=== PATIENT | male | born 1950 | race Caucasian/White ===

== ENCOUNTER → 2022-06-11 11:32 | Outpatient (BNVA) | payer MEDICARE, SELFPAY | PROVIDERS: PCP Nurse Practitioner Family; Visit Provider Nurse Practitioner Family | DX: I10 Essential (primary) hypertension (principal); Z12.5 Encounter for screening for malignant neoplasm of prostate; E55.9 Vitamin D deficiency, unspecified | CPT/HCPCS: 80053; 80061; 82306; 83735; 84443; 85025; G0103 ==

== ENCOUNTER → 2022-12-18 11:27 | Outpatient (BNVA) | payer MEDICARE, SELFPAY | PROVIDERS: PCP Nurse Practitioner Family; Visit Provider Nurse Practitioner Family | DX: I10 Essential (primary) hypertension (principal); E55.9 Vitamin D deficiency, unspecified | CPT/HCPCS: 80053; 80061; 82306; 84443; 85025 ==

== ENCOUNTER → 2023-01-28 14:07 | Outpatient (BNVA) | payer MEDICARE, SELFPAY | PROVIDERS: PCP Nurse Practitioner Family; Visit Provider Nurse Practitioner Family | DX: L82.0 Inflamed seborrheic keratosis (principal); L21.8 Other seborrheic dermatitis; L57.0 Actinic keratosis; D22.5 Melanocytic nevi of trunk; L81.4 Other melanin hyperpigmentation; L85.3 Xerosis cutis; L57.8 Other skin changes due to chronic exposure to nonionizing radiation | CPT/HCPCS: 17000; 17003; 17110; 99214 ==

== ENCOUNTER 2023-02-07 12:55 | Emergency (ER) | payer MEDICARE, SELFPAY ==
[2023-02-07 12:57] VITALS: BP 167/98; PULSE 71; TEMP 36.7; O2SAT 97; BMI 28.2
--- NOTE | 2023-02-07 13:05 | CTR_ITS ---
PROCEDURE INFORMATION: Exam: CT Head Without Contrast Exam date and time: 02/07/2023 1:13 PM Age: 72 years old Clinical indication: Dizziness; Additional info: Dizzy TECHNIQUE: Imaging protocol: Computed tomography of the head without contrast. Radiation optimization: All CT scans at this facility use at least one of these dose optimization techniques: automated exposure control; mA and/or kV adjustment per patient size (includes targeted exams where dose is matched to clinical indication); or iterative reconstruction. REPORTING DATA: Count of CT and Cardiac NM exams in prior 12 months: This patient has received 0 known CTs and 0 known cardiac nuclear medicine studies in the 12 months prior to the current study. COMPARISON: No relevant prior studies available. RADIATION DOSE METRICS: Total DLP (mGy-cm): 1049.49 FINDINGS: Brain: There is no acute intracranial hemorrhage. There is mild lucency in the cerebral white matter, likely microvascular disease although non-specific. No evidence of mass. There is no mass effect or midline shift. Padilla white differentiation is intact. There are no extra-axial fluid collections. Cerebral ventricles: The ventricles and sulci are enlarged, consistent with age-related volume loss / atrophy. No hydrocephalus. Paranasal sinuses: Visualized sinuses are unremarkable. No fluid levels. Mastoid air cells: No significant mastoid effusion. Bones/joints: No acute fracture. Soft tissues: Unremarkable as visualized. Vasculature: There is vascular calcification. CT/CT head wo con* [id number] IMPRESSION: 1. No evidence of acute intracranial abnormality. No evidence of acute infarction, hemorrhage, or mass. 2. Atrophy and microvascular disease.
--- NOTE | 2023-02-07 13:06 | W.ED.NEUROSD ---
HPI - Neuro Symptoms/Deficit General: Chief Complaint: Dizziness Stated Complaint: DIZZY; HTN Time Seen by Provider: 02/07/23 12:56 Source: patient Mode of arrival: ambulatory Limitations: no limitations History of Present Illness: 72-year-old male states that his blood pressures been running high this morning states he is running in the 160s he does take losartan at home states he is feeling some dizziness he states with sudden movements he had felt like the room was spinning so he called ambulance he states those symptoms resolved he is no longer dizzy he had no weakness or slurred speech he denies any chest pain or headache. Associated symptoms: Deny chest pain, headache(s), nausea or vomiting Review of Systems Const: Denies: fever(s), chills, body aches or change in appetite Eyes: Denies: blurry vision or eye discomfort ENMT: Denies: throat pain or dental pain Card: Denies: chest pain Resp: Denies: dyspnea GI: Denies: abdominal pain, nausea, vomiting or diarrhea : Denies: dysuria Musc: Denies: neck pain or back pain Skin/Breast: Denies: rash Neuro: Reports: dizziness; Denies: headache(s), numbness in extremities or weakness in extremities PFSH ED PFSH: Medical History Anxiety CKD (chronic kidney disease) GERD (gastroesophageal reflux disease) Hyperlipidemia Hypertension Vitamin D deficiency Surgical History H/O hernia repair H/O thumb surgery History of carpal tunnel surgery of left wrist History of carpal tunnel surgery of right wrist History of total knee replacement Hx of hand surgery Family History Father Cancer THROAT,PROSTATE Mother Dementia Social History Smoking and tobacco status: former smoker Quit status (tobacco): has quit using tobacco Year quit tobacco: 30 YEARS AGO Second hand smoke exposure: No Alcohol intake: current Alcohol intake frequency: 0-2 Drinks per Day Alcohol type: wine Substance/Drug Use: never Household members: spouse Marital status: service: Yes status: Discharged branch: [employer] Current occupational status: retired Current gender identity: Male Malgorzata/Buddhism: Worship Special malgorzata needs: No NIH stroke score NIHSS: Level Of Consciousness - 1a: 0 Level Of Consciousness Questions - 1b: Both Correct Level Of Consciousness Commands - 1c: Both Correct Best Gaze - 2: Normal Visual Tran - 3: No Visual Loss Facial Palsy - 4: Normal Motor Arm Right - 5: No Drift Motor Arm Left - 5: No Drift Motor Leg Right - 6: No Drift Motor Leg Left - 6: No Drift Limb Ataxia - 7: Absent Sensory - 8: Normal Best Language - 9: No Aphasia Dysarthia - 10: Normal Extinction And Inattention - 11: 0 Score: Total Score: 0 Physical Exam Const: COMMON NORMALS: no acute distress, patient oriented x3 and healthy appearing HENMT: COMMON NORMALS: normocephalic and atraumatic HEAD & SCALP: normocephalic and atraumatic Eye: COMMON NORMALS: Equal, round and reactive pupils present and EOMs intact bilaterally PUPIL: Yes Equal, round and reactive pupils present Neck/C-Spine: COMMON NORMALS: full ROM and supple Chest: COMMONS NORMALS: normal inspection of the chest and normal palpation of entire chest wall Resp: COMMON NORMALS: normal respiratory effort, No retractions, No use of accessory muscles and clear to auscultation bilaterally AUSCULTATION: clear to auscultation bilaterally Cardio: COMMON NORMALS: regular rate, regular rhythm and No murmurs present (Cardio) RATE: regular rate RHYTHM: regular rhythm GI: COMMON NORMALS: Normal to inspection, nondistended, normoactive bowel sounds present, Soft to palpation, non-tender and no masses PALPATION: Yes Soft to palpation Extremity: COMMON NORMALS: normal to inspection and full ROM Neuro: COMMON NORMALS: patient oriented x3, moves all extremities and no focal motor deficits Psych: COMMON NORMALS: mental status grossly normal, Normal thought process present and cooperative THOUGHT PROCESS: Normal thought process present Skin: COMMON NORMALS: no rashes or lesions noted and no wounds GENERAL SKIN EXAM: no rashes or lesions noted Course Vital Signs: Vital signs: Vital Signs Temperature 98.0 F 02/07/23 12:57 Pulse Rate 64 02/07/23 13:46 Respiratory Rate 18 02/07/23 13:46 Blood Pressure 158/92 02/07/23 13:46 Pulse Oximetry 98 02/07/23 13:46 Oxygen Delivery Me thod Room Air 02/07/23 13:46 MDM - Neuro Symptoms/Deficit Medical Decision Making Patient presents here with dizziness along with hypertension blood pressure is much improved his dizziness is resolved he has no signs of stroke here he is stable for discharge she is to follow-up with PCP and return if worsening he understands agrees to plan Medical Records I reviewed the patient's medical records. Lab Data I reviewed the patient's lab results. 02/07/23 13:05 02/07/23 13:05 Laboratory Results WBC 5.77 10^3/uL (3.29-11.43) 02/07/23 13:05 RBC 4.17 10^6/uL (3.85-5.65) 02/07/23 13:05 Hgb 13.50 g/dL (11.27-16.99) 02/07/23 13:05 Hct 40.2 % (37-53) 02/07/23 13:05 MCV 96.4 fl (82-101) 02/07/23 13:05 MCH 32.4 pg (27-33) 02/07/23 13:05 MCHC 33.6 g/dL (30-55) 02/07/23 13:05 RDW 13.9 % (12.1-15.1) 02/07/23 13:05 Plt Count 162 10^3/cmm (157-399) 02/07/23 13:05 MPV 10.1 fL (7.4-10.4) 02/07/23 13:05 Neut % (Auto) 56.9 % 02/07/23 13:05 Lymph % (Auto) 28.9 % 02/07/23 13:05 [place] % (Auto) 9.2 % 02/07/23 13:05 Eos % (Auto) 3.3 % 02/07/23 13:05 Baso % (Auto) 1.4 % 02/07/23 13:05 Neut # (Auto) 3.28 10^3/uL (1.8-7.7) 02/07/23 13:05 Lymph # (Auto) 1.7 10^3/uL (0.8-4.8) 02/07/23 13:05 [place] # (Auto) 0.5 10^3/uL (0.2-0.9) 02/07/23 13:05 Eos # (Auto) 0.2 10^3/uL (0.0-0.8) 02/07/23 13:05 Baso # (Auto) 0.1 10^3/uL (0.0-0.1) 02/07/23 13:05 Nucleated RBC % (auto) 0 % 02/07/23 13:05 Nucleated RBCs # 0.0 /100WBC 02/07/23 13:05 Sodium 140 mmol/L (136-145) 02/07/23 13:05 Potassium 4.5 mmol/L (3.5-5.1) 02/07/23 13:05 Chloride 104 mmol/L (98-107) 02/07/23 13:05 Carbon Dioxide 26 mmol/L (22-29) 02/07/23 13:05 Anion Gap 14.5 (5-19) 02/07/23 13:05 BUN 29 mg/dL (8-23) H 02/07/23 13:05 Creatinine 1.6 mg/dL (0.7-1.2) H 02/07/23 13:05 GFR Calculation Not Reportable 02/07/23 13:05 Glucose 116 mg/dL (65-115) H 02/07/23 13:05 Calculated Osmolality 297 mOsm/kg (285-295) H 02/07/23 13:05 Calcium 9.6 mg/dL (8.5-10.5) 02/07/23 13:05 Total Bilirubin 0.8 mg/dL (0.15-1.2) 02/07/23 13:05 AST 22 U/L (0-40) 02/07/23 13:05 ALT 22 U/L (0-41) 02/07/23 13:05 Alkaline Phosphatase 35 U/L (40-130) L 02/07/23 13:05 Total Protein 7.3 g/dL (6.6-8.7) 02/07/23 13:05 Albumin 4.3 g/dL (3.5-5.2) 02/07/23 13:05 Globulin 3.0 g/dL (1.3-4.6) 02/07/23 13:05 All radiology interpretation(s) finalized by discharge EKG Data EKG 1: I personally reviewed and interpreted this EKG as follows: EKG interpretation date: 02/07/23 EKG interpretation time: 13:20 Interpretation: nsr hr [address] or t wve abnormalities qrs 138 qtc 419 Discharge Plan Discharge Patient Disposition: Home Clinical Impression: Hypertension, Dizziness Condition: Stable Prescriptions: New Antivert 50 mg tablet 50 mg PO BID PRN (Reason: dizziness) Qty: 14 0RF No Action ketoconazole 2 % shampoo 1 applic topical Q14D Qty: 120 6RF Rx Instructions: Lather into scalp 2-3 times weekly. Allowed to sit on scalp for 5 minutes before rinsing. cholecalciferol (vitamin D3) 50 mcg (2,000 unit) capsule 50 mcg PO DAILY losartan 100 mg tablet 100 mg PO DAILY Qty: 90 3RF pantoprazole 40 mg tablet,delayed release (DR/EC) 40 mg PO DAILY Qty: 90 3RF rosuvastatin 20 mg tablet 20 mg PO DAILY Qty: 90 3RF Discharge Orders: Discharge ED (Routine); Ordered 02/07/23 Ordered By: Karina Hooper Referrals: Latoya Aguirre FNP [Primary Care Provider] - 1-3 days Discharge Diet: Advance as tolerated Discharge Activity: Resume usual activity Patient Instructions: Dizziness (ED) Coding Level of Care Code ED Immigration Specialist for Ayesha Triplett
[2023-02-07 13:16] LABS: Basophils # 0.1 10^3/uL (0.0-0.1); Basophils % 1.4 %; Eosinophils # 0.2 10^3/uL (0.0-0.8); Eosinophils % 3.3 %; Hematocrit 40.2 % (37-53); Lymphocytes # 1.7 10^3/uL (0.8-4.8); Lymphocytes % 28.9 %; Mean Corpuscular HGB Conc 33.6 g/dL (30-55); Mean Corpuscular Hemoglobin 32.4 pg (27-33); Mean Corpuscular Volume 96.4 fl (82-101); Mean Platelet Volume 10.1 fL (7.4-10.4); Monocytes # 0.5 10^3/uL (0.2-0.9); Monocytes % 9.2 %; Neutrophils # 3.28 10^3/uL (1.8-7.7); Neutrophils % 56.9 %; Nucleated Red Blood Cells % 0 %; Platelet Count 162 10^3/cmm (157-399); Red Blood Count 4.17 10^6/uL (3.85-5.65); Red Cell Distribution Width 13.9 % (12.1-15.1); White Blood Count 5.77 10^3/uL (3.29-11.43)
--- NOTE | 2023-02-07 13:20 | ECG_ITS ---
[facility] Test Date: 2023-02-07 Pat Name: Keon Valencia Department: Room: Gender: Male Pillar Man: : 1950 Requested By: Karina Hooper Order Number: [id number] Ruth MD: Zoë Romero M.D. Measurements Intervals [place] Rate: 60 P: 73 WA: 147 QRS: 43 QRSD: 138 T: 23 QT: 417 QTc: 419 Interpretive Statements SINUS RHYTHM RIGHT BUNDLE BRANCH BLOCK [120+ ms QRS DURATION, UPRIGHT V1, 40+ ms S IN I/aVL/V4/V5/V6] No previous ECG available for comparison Electronically Signed On 02-07-2023 15:37:19 CDT by Zoë Romero M.D. [id number]
[2023-02-07 13:35] LABS: Alanine Aminotransferase 22 U/L (0-41); Albumin Level 4.3 g/dL (3.5-5.2); Alkaline Phosphatase 35 U/L (40-130); Anion Gap 14.5 (5-19); Aspartate Amino Transferase 22 U/L (0-40); Blood Urea Nitrogen 29 mg/dL (8-23); Calcium 9.6 mg/dL (8.5-10.5); Carbon Dioxide 26 mmol/L (22-29); Chloride 104 mmol/L (98-107); Glucose 116 mg/dL (65-115); Osmolality Calculated 297 mOsm/kg (285-295); Potassium 4.5 mmol/L (3.5-5.1); Sodium 140 mmol/L (136-145); Total Bilirubin 0.8 mg/dL (0.15-1.2); Total Protein 7.3 g/dL (6.6-8.7)
[2023-02-07 13:46] VITALS: BP 158/92; PULSE 64; RESP 18; O2SAT 98
[2023-02-07] MEDS: meclizine 25 mg tablet 50 MG PO (13:49)
[2023-02-07] MEDS: hyDRALAzine 20 mg/mL INJ 1 mL 10 MG IVP (13:49)
[2023-02-07 14:14] VITALS: BP 136/68; PULSE 99; O2SAT 99
== END 2023-02-07 14:09 | disposition home or self-care (01) ==
PROVIDERS: Emergency Provider Emergency Medicine; PCP Nurse Practitioner Family
DX: I12.9 Hypertensive chronic kidney disease with stage 1 through stage 4 chronic kidney disease, or unspecified chronic kidney disease (principal); N18.9 Chronic kidney disease, unspecified; E78.5 Hyperlipidemia, unspecified; Z87.891 Personal history of nicotine dependence
CPT/HCPCS: 36415; 70450; 80053; 85025; 93005; 96374; 99284; J0360; J8597

== ENCOUNTER 2023-02-19 07:27 | Outpatient (CLI) | payer MEDICARE, SELFPAY ==
--- NOTE | 2023-02-19 08:00 | USCV_ITS ---
Keon Valencia Age: 72 Gender: M : 1950 Exam Date: 02/19/2023 07:46 Ordering Phys: Latoya Aguirre SUSPENDER CUTTER Technologist: ESUTARDO [place] [facility] [place] Indication: Dizziness Risk Factors: Previous Vascular Surgery: Right Brachial BP: / Left Brachial BP: / Right Left Velocity (cm/s) Spectral Plaque Velocity (cm/s) Spectral Plaque Syst/Diast Broadening Syst/Diast Broadening 74.90/ 21.70 Prox CCA 67.70 / 18.60 61.10/ 15.10 Mid CCA 57.80 / 20.40 51.30/ 16.40 Distal CCA 56.50 / 13.80 35.50/ 13.10 Prox ICA 58.80 / 25.30 57.20/ 25.60 Mid ICA 52.10 / 21.00 73.60/ 32.20 Distal ICA 78.90 / 41.40 55.20 ECA 53.40 0.98 ICA/CCA 1.16 Antegrade Vertebral Antegrade 36.80/ 16.40 cm/s 38.10/ 15.80 cm/s Tri Subclavian Tri 60.10 52.00 FINDINGS Comparison: none available. No significant elevation of systolic or diastolic velocities. Waveforms are normal. Mild calcified plaque and intimal thickening identified. Antegrade vertebral arteries. CONCLUSIONS Bilateral ICA stenosis less than 50%. Mild carotid atherosclerosis. Dr. Caren Grant DO (Electronically Signed) Final Date: 19 February 2023 09:09 S
== END 2023-02-19 07:28 | disposition home or self-care (01) ==
PROVIDERS: PCP Nurse Practitioner Family; Visit Provider Nurse Practitioner Family
DX: R42 Dizziness and giddiness (principal); Z09 Encounter for follow-up examination after completed treatment for conditions other than malignant neoplasm; I65.23 Occlusion and stenosis of bilateral carotid arteries
CPT/HCPCS: 93880

== ENCOUNTER → 2023-03-16 10:28 | Outpatient (BNVA) | payer MEDICARE, SELFPAY | PROVIDERS: PCP Nurse Practitioner Family; Referring Provider Nurse Practitioner Family; Visit Provider Internal Medicine Cardiovascular Disease | DX: I45.10 Unspecified right bundle-branch block (principal); R07.9 Chest pain, unspecified; I12.9 Hypertensive chronic kidney disease with stage 1 through stage 4 chronic kidney disease, or unspecified chronic kidney disease; E78.5 Hyperlipidemia, unspecified; N18.9 Chronic kidney disease, unspecified | CPT/HCPCS: 93005; 99204 ==

== ENCOUNTER 2023-03-23 08:32 | Outpatient (CLI) | payer MEDICARE, SELFPAY ==
[2023-03-23 08:50] VITALS: BMI 27.7
--- NOTE | 2023-03-23 08:52 | NMCV_ITS ---
NM lata perf SPECT r/s* [id number] Keon Valencia Age: 72 Gender: M : 1950 Exam Date: 03/23/2023 10:07 Ordering Phys: Zoë Romero MD ([email or web address]) Technologist: SAMI Nunez Exam Location: [facility] Indications: CHEST PAIN STRESS TEST Please see separate stress test report in [facility] for full findings IMAGE PROTOCOL Rest/Stress 1 Exercise Day Radiopharmaceutical Dose (mCi) Administration Site Administered by Rest: Tc-99m 11.0 IV SAMI Nunez Sestamibi Stress:Tc-99m 32.8 IV SAMI Baires Sestamibi Rest: 23-Mar-2023 60 Discovery 630 Stress: 23-Mar-2023 15 Discovery 630 Radiopharmaceutical was injected at 90 % maximum heart rate. Images obtained in supine and prone position. SPECT RESULTS Technical Quality: Excellent Raw Data Analysis: Normal Image Corrections: No attenuation or motion correction applied Summed Stress Score: 5 Summed Rest Score: 3 Summed Difference Score: 2 PERFUSION FINDINGS Small sized perfusion abnormality of mild severity of apical inferior and mid inferoseptal gale with mild reversibility in mid to apical inferior gale. There is improved tracer uptake in prone stress images. This likely represents attenuation artifact. FUNCTIONAL RESULTS (calculated via Gated SPECT) Stress Image LV EF (%): 81 Stress EDV (mL):70 TID: 0.73 Stress ESV (mL):13 FUNCTIONAL FINDINGS: The left ventricle is normal in size. Transient Ischemia Dilatation of 0.73. The left ventricular ejection fraction is normal with a value of 81%. There is normal left ventricular wall thickening. Normal end diastolic and end systolic volumes. IMPRESSIONS 1. Myocardial perfusion imaging is normal. Attenuation artifact noted in inferior wall. 2. Overall left ventricular systolic function is normal without regional wall motion abnormalities, LVEF=81%. 3. EKG portion of the study will be reported separately. 4. Scan indicates low risk for cardiac events. Zoë Romero MD (Electronically Signed) Final Date: 05 April 2023 10:12 S
--- NOTE | 2023-03-23 08:52 | ECG_ITS ---
[facility] Test Date: 2023-03-23 Pat Name: Keon Valencia Department: Room: Gender: Male B Operator: : 1950 Requested By: Zoë Romero Order Number: [id number] Miranda MD: Zoë Romero M.D. Interpretive Statements NAME OF STUDY: EXERCISE SESTAMIBI STRESS TEST INDICATION: [Chest Pain ] Baseline blood pressure of 151/81 mm Hg, heart rate of 63 beats per minute. EKG showed sinus rhythm, right axis deviation with RBBB. ??? The patient exercised for 3 minutes and 16 seconds on a [standard Beau protocol]. Patient attained a maximum heart rate of 145 beats per minute( 99 % of the maximum predicted heart rate) with a blood pressure at the peak exercise of 180/96 mm Hg. The EKG at the peak exercise revealed sinus tachycardia with no significant ST-T wave changes. Patient did not have any chest pain or any significant arrhythmis with the exercise. During the recovery phase, there were no new changes. ??? Blood pressure at the end of the recovery phase was 152/91 mm Hg with a heart rate of 93 beats per minute. ??? CONCLUSION: 1. Normal EKG response to treadmill exercise. 2. No exercise-induced chest pain or cardiac arrhythmia. 3. Decreased exercise tolerance, attained a maximum of 7 METs. 4. Baseline hypertension with normal response to exercise. 5. Perfusion scan will be documented separately. Electronically Signed On 03-28-2023 22:11:51 CONSERVATION ENFORCEMENT OFFICER by Zoë Romero M.D. [id number]
[2023-03-23 11:08] VITALS: BP 172/89; PULSE 98
== END 2023-03-23 08:33 | disposition home or self-care (01) ==
LOC: CDL 08:34
PROVIDERS: PCP Nurse Practitioner Family; Visit Provider Internal Medicine Cardiovascular Disease
DX: R07.9 Chest pain, unspecified (principal)
CPT/HCPCS: 36415; 78452; 93017; 96374; A9500

== ENCOUNTER → 2023-07-07 15:35 | Outpatient (BNVA) | payer MEDICARE, SELFPAY | PROVIDERS: PCP Nurse Practitioner Family; Visit Provider Nurse Practitioner Family | DX: N18.9 Chronic kidney disease, unspecified (principal); E55.9 Vitamin D deficiency, unspecified | CPT/HCPCS: 80069; 82306; 82542; 85025 ==

== ENCOUNTER → 2023-07-08 10:50 | Outpatient (BNVA) | payer MEDICARE, SELFPAY | PROVIDERS: PCP Nurse Practitioner Family; Visit Provider Family Medicine | DX: N18.9 Chronic kidney disease, unspecified (principal); Z79.899 Other long term (current) drug therapy | CPT/HCPCS: 82310; 82570; 83970; 84156 ==

== ENCOUNTER 2023-07-27 07:40 | Outpatient (CLI) | payer MEDICARE, SELFPAY ==
--- NOTE | 2023-07-27 07:46 | US_ITS ---
WS: [id number] ULTRASOUND RENAL TECHNIQUE: Ultrasound examination of both kidneys. CLINICAL INFORMATION: STAGE 3A CHRONIC KIDNEY DZ COMPARISON: None. FINDINGS: RIGHT: Right kidney with lobulated cortex likely due to parenchymal scarring with mild atrophy Echogenicity: Normal. Cortical thickness: 0.7 cm; Hydronephrosis: None. Perinephric fluid: None. Right kidney measures: 9.2 cm x 5.8 cm x 3.4 cm. LEFT: Left kidney with lobulated cortex likely due to parenchymal scarring with mild atrophy Echogenicity: Normal. Cortical thickness: 0.8 cm Hydronephrosis: None. Perinephric fluid: None. Left kidney measures: 8.4 cm x 5.4 cm x 3.2 cm. Normal visualized aorta. Bladder incompletely distended IMPRESSION: 1. No hydronephrosis in either kidney. 2. Bilateral renal cortical scarring with cortical atrophy. 3. Bladder incompletely distended.
== END 2023-07-27 07:41 | disposition home or self-care (01) ==
LOC: RAD 07:40
PROVIDERS: PCP Nurse Practitioner Family; Visit Provider Internal Medicine
DX: I12.9 Hypertensive chronic kidney disease with stage 1 through stage 4 chronic kidney disease, or unspecified chronic kidney disease (principal); N18.31 Chronic kidney disease, stage 3a
CPT/HCPCS: 76770

== ENCOUNTER 2023-09-14 14:00 | Outpatient (CLI) | payer MEDICARE, SELFPAY ==
--- NOTE | 2023-09-14 14:16 | XRR_ITS ---
PROCEDURE INFORMATION: Exam: XR Left Ribs with PA Chest Exam date and time: 09/14/2023 2:19 PM Age: 73 years old Clinical indication: Injury or trauma; Fall; Rib area, left side; Blunt trauma; Injury date: 3 days ago; Additional info: R07.81 - pleurodynia TECHNIQUE: Imaging protocol: Radiologic exam of the left ribs with PA chest. Views: 3 views COMPARISON: CR XR thoracic spine 3V* [id number] 09/14/2023 2:19 PM FINDINGS: Lungs: Unremarkable. No consolidation. Pleural spaces: Unremarkable. No pleural effusion. No pneumothorax. Heart/Mediastinum: Unremarkable. No cardiomegaly. Bones/joints: Unremarkable. XR/XR ribs LT mn 3V w CXR1V [id number] IMPRESSION: No acute findings.
--- NOTE | 2023-09-14 14:16 | XRR_ITS ---
PROCEDURE INFORMATION: Exam: XR Left Elbow Exam date and time: 09/14/2023 2:19 PM Age: 73 years old Clinical indication: Injury or trauma; Fall; Blunt trauma (contusions or hematomas); Elbow; Left; Injury date: 3 days ago; Additional info: M25.522 - pain in left elbow TECHNIQUE: Imaging protocol: Radiologic exam of the left elbow. Views: 3 or more views. COMPARISON: No relevant prior studies available. FINDINGS: Bones/joints: Normal. Soft tissues: Normal. XR/XR elbow LT min 3V* [id number] IMPRESSION: No acute findings.
--- NOTE | 2023-09-14 14:16 | XRR_ITS ---
PROCEDURE INFORMATION: Exam: XR Thoracic Spine Exam date and time: 09/14/2023 2:19 PM Age: 73 years old Clinical indication: Injury or trauma; Fall; Blunt trauma (contusions or hematomas); Injury date: 3 days ago; Additional info: M54.6 - pain in thoracic spine TECHNIQUE: Imaging protocol: Radiologic exam of the thoracic spine. Views: 3 views. COMPARISON: CR XR ribs LT mn 3V w CXR1V [id number] 09/14/2023 2:19 PM FINDINGS: Bones/joints: No acute fracture. Normal alignment. Soft tissues: Unremarkable. XR/XR thoracic spine 3V* [id number] IMPRESSION: No acute findings.
== END 2023-09-14 14:01 | disposition home or self-care (01) ==
PROVIDERS: PCP Nurse Practitioner Family; Visit Provider Nurse Practitioner Family
DX: M25.522 Pain in left elbow (principal); M54.6 Pain in thoracic spine; R07.81 Pleurodynia
CPT/HCPCS: 71101; 72072; 73080; 80053; 80061; 84443; 85025; G0103

== ENCOUNTER → 2023-10-08 10:42 | Outpatient (BNVA) | payer MEDICARE, SELFPAY | PROVIDERS: PCP Nurse Practitioner Family; Visit Provider Physician Assistant | DX: M70.22 Olecranon bursitis, left elbow (principal) | CPT/HCPCS: 73080; 99203 ==

== ENCOUNTER → 2023-11-03 09:41 | Outpatient (BNVA) | payer MEDICARE, SELFPAY | PROVIDERS: PCP Nurse Practitioner Family; Visit Provider Nurse Practitioner Family | DX: L02.416 Cutaneous abscess of left lower limb (principal); Z79.899 Other long term (current) drug therapy | CPT/HCPCS: 87070; 87075; 87205 ==

== ENCOUNTER 2023-12-22 15:34 | Outpatient (CLI) | payer MEDICARE, SELFPAY ==
--- NOTE | 2023-12-22 15:45 | USCV_ITS ---
Keon Valencia Age: 73 Gender: M : 1950 Exam Date: 12/22/2023 16:18 Ordering Phys: Latoya Aguirre POWERHOUSE MECHANIC Technologist: CT Exam Location: [facility] [place] Indication: PROCEDURES: Venous duplex imaging was performed in only the right lower extremity. FINDINGS: dvt cfv---nia v CONCLUSIONS RLE dvt extending from CFV thru femoral, popliteal and peroneal veins. Small amount of mobile thrombus CFV. Thrombus extends to the GSV junction Prelim to Luh [place] at time of exam. Patient will pick medicine at pharmacy Del Chery MD (Electronically Signed) Final Date: 22 December 2023 17:05 S
== END 2023-12-22 15:35 | disposition home or self-care (01) ==
LOC: RAD 15:35
PROVIDERS: PCP Nurse Practitioner Family; Visit Provider Nurse Practitioner Family
DX: I82.411 Acute embolism and thrombosis of right femoral vein (principal); M79.604 Pain in right leg
CPT/HCPCS: 93971

== ENCOUNTER → 2023-12-23 14:00 | Outpatient (BNVA) | payer MEDICARE, SELFPAY | PROVIDERS: PCP Nurse Practitioner Family; Visit Provider Nurse Practitioner Family | DX: N18.30 Chronic kidney disease, stage 3 unspecified (principal) | CPT/HCPCS: 80069; 82043; 82542 ==

== ENCOUNTER → 2023-12-31 10:40 | Outpatient (BNVA) | payer MEDICARE, SELFPAY | PROVIDERS: PCP Nurse Practitioner Family; Visit Provider Student in an Organized Health Care Education/Training Program | DX: M70.22 Olecranon bursitis, left elbow | CPT/HCPCS: 99213 ==

== ENCOUNTER → 2024-01-04 10:15 | Outpatient (BNVA) | payer MEDICARE, SELFPAY | PROVIDERS: PCP Nurse Practitioner Family; Visit Provider Nurse Practitioner Family | DX: N18.30 Chronic kidney disease, stage 3 unspecified (principal) | CPT/HCPCS: 82310; 83970 ==

== ENCOUNTER → 2024-01-31 08:55 | Outpatient (BNVA) | payer MEDICARE, SELFPAY | PROVIDERS: PCP Nurse Practitioner Family; Visit Provider Nurse Practitioner Family | DX: L21.8 Other seborrheic dermatitis (principal); L57.8 Other skin changes due to chronic exposure to nonionizing radiation; L81.4 Other melanin hyperpigmentation; L82.1 Other seborrheic keratosis; L57.0 Actinic keratosis | CPT/HCPCS: 17000; 99214 ==

== ENCOUNTER → 2024-02-19 17:37 | Outpatient (BNVA) | payer MEDICARE, SELFPAY | PROVIDERS: PCP Nurse Practitioner Family; Visit Provider Emergency Medicine | DX: R50.9 Fever, unspecified (principal) | CPT/HCPCS: 87426 ==

== ENCOUNTER 2024-06-20 10:41 | Outpatient (CLI) | payer MEDICARE, SELFPAY ==
[2024-06-20 11:25] LABS: Basophils # 0.1 10^3/uL (0.0-0.1); Basophils % 1.2 %; Eosinophils # 0.3 10^3/uL (0.0-0.8); Eosinophils % 4.9 %; Lymphocytes # 1.4 10^3/uL (0.8-4.8); Lymphocytes % 23.7 %; Mean Corpuscular HGB Conc 32.3 g/dL (30-55); Mean Corpuscular Hemoglobin 28.6 pg (27-33); Mean Corpuscular Volume 88.7 fl (82-101); Mean Platelet Volume 10.9 fL (7.4-10.4); Monocytes # 0.5 10^3/uL (0.2-0.9); Monocytes % 8.1 %; Neutrophils # 3.68 10^3/uL (1.8-7.7); Neutrophils % 61.9 %; Nucleated Red Blood Cells % 0 %; Platelet Count 151 10^3/cmm (157-399); Red Blood Count 4.51 10^6/uL (3.85-5.65); Red Cell Distribution Width 13.8 % (12.1-15.1); White Blood Count 5.94 10^3/uL (3.29-11.43)
[2024-06-20 11:48] LABS: Albumin Level 4.2 g/dL (3.5-5.2); Anion Gap 13.4 (5-19); Blood Urea Nitrogen 23 mg/dL (8-23); Calcium 9.9 mg/dL (8.5-10.5); Carbon Dioxide 26 mmol/L (22-29); Chloride 106 mmol/L (98-107); Glucose 90 mg/dL (65-115); Phosphorus 4.1 mg/dL (2.5-4.5); Potassium 4.4 mmol/L (3.5-5.1); Sodium 141 mmol/L (136-145)
[2024-06-20 11:50] LABS: Calcium 9.9 mg/dL (8.5-10.5)
[2024-06-20 11:56] LABS: Parathyroid Hormone 27.1 pg/mL (15-65)
[2024-06-20 12:16] LABS: Creatinine Urine, Random 87 mg/dL (39-259); Microalbum Creatinine Ratio Ur 11 mg/dL (0-20); Microalbumin Random Urine 1 ug/dL (0-20)
== END 2024-06-20 10:42 | disposition home or self-care (01) ==
LOC: LAB 10:50
PROVIDERS: PCP Nurse Practitioner Family; Visit Provider Internal Medicine
DX: N18.31 Chronic kidney disease, stage 3a (principal)
CPT/HCPCS: 36415; 80069; 82044; 82310; 83970; 85025

== ENCOUNTER → 2024-07-17 11:04 | Outpatient (BNVA) | payer MEDICARE, SELFPAY | PROVIDERS: PCP Nurse Practitioner Family; Visit Provider Nurse Practitioner Family | DX: E78.5 Hyperlipidemia, unspecified (principal); I10 Essential (primary) hypertension; E55.9 Vitamin D deficiency, unspecified | CPT/HCPCS: 80053; 80061; 82306; 84443 ==

== ENCOUNTER 2024-08-03 10:34 | Outpatient (CLI) | payer MEDICARE, SELFPAY ==
--- NOTE | 2024-08-03 11:00 | USCV_ITS ---
Keon Valencia Age: 74 Gender: M : 1950 Exam Date: 08/03/2024 10:43 Ordering Phys: Latoya Aguirre DEWAXER DEWAXER Technologist: ESTUARDO Exam Location: [facility] [place] Indication: Rt LE DVT in prio HISTORY: DVT. PROCEDURES: Venous duplex imaging was performed in only the right lower extremity. The following venous structures were evaluated: common femoral vein, profunda vein, proximal portion of the greater saphenous vein, superficial femoral vein, and the popliteal vein. In addition, the posterior tibial and peroneal trunk were evaluated. Serial compression, augmentation maneuvers, and spectral Doppler flow evaluation were performed. FINDINGS: ?partial nonoccluding thrombus still remaining in the femoral vein. All other appears wnl Comparison previous 2023 CONCLUSIONS Partial occlusive residual thrombus RIGHT femoral vein Remainder patent Del Chery MD (Electronically Signed) Final Date: 03 August 2024 11:45 S
== END 2024-08-03 10:35 | disposition home or self-care (01) ==
LOC: RAD 10:37
PROVIDERS: PCP Nurse Practitioner Family; Visit Provider Nurse Practitioner Family
DX: I82.511 Chronic embolism and thrombosis of right femoral vein (principal)
CPT/HCPCS: 93971

== ENCOUNTER → 2024-09-01 10:09 | Outpatient (BNVA) | payer MEDICARE, SELFPAY | PROVIDERS: PCP Nurse Practitioner Family; Visit Provider Nurse Practitioner Family | DX: L57.8 Other skin changes due to chronic exposure to nonionizing radiation (principal); L81.4 Other melanin hyperpigmentation; L82.1 Other seborrheic keratosis; L57.0 Actinic keratosis | CPT/HCPCS: 17000; 99213 ==

== ENCOUNTER → 2024-12-25 10:16 | Outpatient (BNVA) | payer MEDICARE, SELFPAY | PROVIDERS: PCP Nurse Practitioner Family; Visit Provider Nurse Practitioner Family | DX: N18.30 Chronic kidney disease, stage 3 unspecified (principal) | CPT/HCPCS: 80069; 82043; 82306; 82310; 83970; 85007; 85027 ==

== ENCOUNTER → 2025-02-21 15:38 | Outpatient (BNVA) | payer MEDICARE, SELFPAY | PROVIDERS: PCP Nurse Practitioner Family; Visit Provider Nurse Practitioner Family | DX: N18.30 Chronic kidney disease, stage 3 unspecified (principal); E55.9 Vitamin D deficiency, unspecified; E78.5 Hyperlipidemia, unspecified; M25.59 Pain in other specified joint; W57.XXXA Bitten or stung by nonvenomous insect and other nonvenomous arthropods, initial encounter | CPT/HCPCS: 80053; 82306; 82607; 83735; 84443; 85025; 85651; 86140; 86160; 86162; 86200; 86235; 86255; 86376; 86431; 86618; 86666; 86757 ==

== ENCOUNTER → 2025-03-01 11:07 | Outpatient (BNVA) | payer MEDICARE, SELFPAY | PROVIDERS: PCP Nurse Practitioner Family; Visit Provider Nurse Practitioner Family | DX: E55.9 Vitamin D deficiency, unspecified (principal); E78.5 Hyperlipidemia, unspecified; M25.59 Pain in other specified joint | CPT/HCPCS: 86160; 86162; 86235; 86255; 86376 ==

== ENCOUNTER 2025-03-02 15:54 | Outpatient (CLI) | payer MEDICARE, SELFPAY ==
--- NOTE | 2025-03-02 17:00 | USCV_ITS ---
Keon Valencia Age: 74 Gender: M : 1950 Exam Date: 03/02/2025 16:13 Ordering Phys: Latoya Aguirre MAKER UP FOLDING MAKER UP FOLDING Technologist: Exam Location: [facility] [place] Indication: chronic DVT HISTORY: DVT. PROCEDURES: Venous duplex imaging was performed in only the right lower extremity. Serial compression, augmentation maneuvers, and spectral Doppler flow evaluation were performed. FINDINGS: chronic dvt on rt PROX FV CONCLUSIONS Persistent chronic DVT RIGHT proximal femoral vein similiar to previous 08/15 Remainder patent Del Chery MD (Electronically Signed) Final Date: 02 March 2025 16:35 S
== END 2025-03-02 15:55 | disposition home or self-care (01) ==
PROVIDERS: PCP Nurse Practitioner Family; Visit Provider Nurse Practitioner Family
DX: I82.511 Chronic embolism and thrombosis of right femoral vein (principal)
CPT/HCPCS: 93971

== ENCOUNTER → 2025-04-24 10:52 | Outpatient (BNVA) | payer MEDICARE, SELFPAY | PROVIDERS: PCP Nurse Practitioner Family; Visit Provider Nurse Practitioner Family | DX: N18.30 Chronic kidney disease, stage 3 unspecified (principal); I12.9 Hypertensive chronic kidney disease with stage 1 through stage 4 chronic kidney disease, or unspecified chronic kidney disease | CPT/HCPCS: 80069; 82043; 82306; 82310; 83970; 85025 ==